=== PATIENT | male | born 1950 | race Caucasian/White ===

== ENCOUNTER 2017-05-05 08:08 | Emergency (ER) | payer OTHER ==
--- NOTE | 2017-05-05 08:14 | PDOC ---
History of Present Illness - General Chief Complaint: Wound Stated Complaint: OOZING BLOOD FROM SURGICAL CYST REMOVAL SITE TO Time Seen by Provider: 05/05/17 08:12 History Source: Patient Exam Limitations: No Limitations - History of Present Illness Initial Comments: 05/05/17 08:14 CHIEF COMPLAINT: Oozing from surgical site HISTORY OF PRESENT ILLNESS: This is a 67 year old male with a history of Afib on Xarelto/Metoprolol who presents for evaluation of oozing from a surgical site. He had two chest wall cysts removed on 04/30 in an outpatient setting. Yesterday, he noted some redness at both sites and was unable to reach his surgeon, so he presented to an urgent care center and was prescribed Keflex. They also removed two of the sutures from the left upper chest wall site. He thinks that he moved his arm in such a way as to cause the wound to open this morning. He has not had fevers/chills or any other systemic symptoms. Patient is afebrile on arrival. REVIEW OF SYSTEMS: GENERAL/CONSTITUTIONAL: No fever or chills. No weakness. No weight change. HEAD, EYES, EARS, NOSE AND THROAT: No change in vision. No ear pain or discharge. No sore throat. CARDIOVASCULAR: No chest pain or palpitations. RESPIRATORY: No cough, wheezing, or shortness of breath. GASTROINTESTINAL: No nausea, vomiting, diarrhea or constipation. GENITOURINARY: No dysuria, frequency, or change in urination. MUSCULOSKELETAL: No joint or muscle swelling or pain. No neck or back pain. SKIN: Redness/tenderness at surgical sites. NEUROLOGIC: No headache, vertigo, loss of consciousness, or loss of sensation. PSYCHIATRIC: No depression or anxiety. ENDOCRINE: No increased thirst. No abnormal weight change. HEMATOLOGIC/LYMPHATIC: Easy bleeding, on Xarelto. No history of anemia. ALLERGIC/IMMUNOLOGIC: No hives or skin allergy. No latex allergy. PHYSICAL EXAM: GENERAL: The patient is awake, alert, and fully oriented, in no acute distress. HEAD: Normal with no signs of trauma. ENT: Pupils equal, round and reactive to light, extraocular movements intact, sclera anicteric, conjunctiva clear. Neck supple. LUNGS: Clear to auscultation bilaterally. Normal excursion. No respiratory distress or use of accessory muscles. CV: RRR, S1/S2, no MRG. Cap refill < 2 sec. ABDOMEN: Soft, non-distended, non-tender. EXTREMITIES: Normal range of motion, no edema. NEUROLOGICAL: Normal speech, normal gait. CN II-XII grossly intact. PSYCH: Normal mood, normal affect. SKIN: Horizontal mid-sternal incision erythematous and mildly tender without exudate. Horizontal left upper chest wall incision mildly erythematous, moderate bleeding. [address] Past History - Past Medical History Allergies/Adverse Reactions: Allergies Allergy/AdvReac Type Severity Reaction Status Date / Time No Known Allergies Allergy Verified 05/05/17 08:10 Home Medications: Ambulatory Orders Amiodarone HCl 100 mg PO DAILY 12/27/14 Metoprolol Succinate [Toprol XL -] 25 mg PO DAILY 12/27/14 Rivaroxaban [Xarelto -] 20 mg PO DAILY 12/27/14 Cephalexin [Keflex] 500 mg PO BID 05/05/17 Hydrochlorothiazide [Hctz -] 12.5 mg PO DAILY 05/05/17 Sulfamethoxazole/Trimethoprim [Bactrim Ds -] 1 tab PO BID #14 tablet 05/05/17 Anemia: No Asthma: No Cardiac Disorders: Yes (H/O ATRIAL FIBRILLATION) CVA: No COPD: No CHF: No Dementia: No Diabetes: No GI Disorders: No Disorders: No HTN: Yes Hypercholesterolemia: No Liver Disease: No Seizures: No Thyroid Disease: No - Surgical History Abdominal Surgery: No Appendectomy: No Cardiac Surgery: No Cholecystectomy: No Lung Surgery: No Neurologic Surgery: No Orthopedic Surgery: No - Psycho/Social/Smoking Cessation Hx Smoking History: Never smoked Hx Alcohol Use: Yes Drug/Substance Use Hx: No Substance Use Type: Alcohol Hx Substance Use Treatment: No Medical Decision Making - Medical Decision Making 05/05/17 08:41 A/P: 67 year old male with wound infections; 2 sutures removed from one of the wounds yesterday and now with moderate bleeding. 1. Surgicel and pressure dressing applied with good hemostasis 2. Add Bactrim to Keflex prescribed by urgent care for MRSA coverage 3. Patient has surgical followup appointment tomorrow 4. Followup instructions and return precautions reviewed *DC/Admit/Observation/Transfer Diagnosis at time of Disposition: Wound infection - Discharge Dispostion Condition at time of disposition: Stable Admit: No - Prescriptions Prescriptions: Sulfamethoxazole/Trimethoprim [Bactrim Ds -] 1 tab PO BID #14 tablet - Patient Instructions Printed Discharge Instructions: DI for Wound Infection Additional Instructions: -Change the outer dressing if needed using the supplies provided -The Surgicel is absorbable and does not need to be removed -Continue taking Keflex and add Bactrim as prescribed -Follow up with your surgeon as scheduled tomorrow -Return for fever (temperature over 100.4), chills, or any other concerning symptoms
[2017-05-05 08:24] VITALS: BP 164/94; PULSE 67; TEMP 98.6; BMI 30.7
== END 2017-05-05 08:32 | disposition home or self-care (01) ==
LOC: FER 08:08
DX: L08.9 Local infection of the skin and subcutaneous tissue, unspecified (principal); L76.22 Postprocedural hemorrhage of skin and subcutaneous tissue following other procedure; I48.91 Unspecified atrial fibrillation; Z79.01 Long term (current) use of anticoagulants; I10 Essential (primary) hypertension
CPT/HCPCS: 99281-25

== ENCOUNTER 2024-11-26 08:06 | Day surgery (SDC) | payer OTHER ==
[2024-11-19 16:30] VITALS: BMI 30.7
[2024-11-26 08:34] VITALS: RESP 18
[2024-11-26 09:18] VITALS: TEMP 97
[2024-11-26 09:40] VITALS: BP 128/72; PULSE 67
== END 2024-11-26 10:00 | disposition home or self-care (01) ==
LOC: FASU-ENDO 08:06
PROVIDERS: ATTEND Internal Medicine Gastroenterology
PROC: 0DJD8ZZ Inspection of Lower Intestinal Tract, Via Natural or Artificial Opening Endoscopic (ICD-10-PCS; principal; 2024-11-26 09:01)
DX: Z12.11 Encounter for screening for malignant neoplasm of colon (principal); K57.30 Diverticulosis of large intestine without perforation or abscess without bleeding